=== PATIENT | male | born 1955 | race Caucasian/White ===

== ENCOUNTER 2021-10-15 21:24 | Emergency (ER) | payer OTHER ==
[~2021-10-15] VITALS: Ht 177.8 cm; Wt 59.9 kg
--- NOTE | 2021-10-15 21:34 | NUR ---
pt in for c/o lung pain. states he was exposed to mold two years ago.
--- NOTE | 2021-10-15 21:43 | NUR ---
Dr. Karimi at bedside for MSE.
[2021-10-15 22:34] LABS: HEMATOCRIT 41.4 % (36.7-47.1); MEAN CORPUSCULAR HEMOGLOBIN 30.4 uug (23.8-33.4); MEAN CORPUSCULAR VOLUME 89.1 fL (73.0-96.2); PLATELET COUNT (AUTO) 157 K/uL (152-348)
[2021-10-15 22:39] LABS: CREATININE 1.5 mg/dL (0.6-1.3); POTASSIUM 4.2 mmol/L (3.5-5.1)
[2021-10-15 22:44] LABS: BILIRUBIN,DIRECT 0.1 mg/dL (0.0-0.2); BILIRUBIN,TOTAL 0.4 mg/dL (0.2-1.0); TOTAL PROTEIN, SERUM 6.9 g/dL (6.4-8.2)
[2021-10-15 23:16] LABS: *BILIRUBIN,URIN NEGATIVE (NEGATIVE); *BLOOD, URINE NEGATIVE (NEGATIVE); *CLARITY,URINE CLEAR (CLEAR); *COLOR,URINE YELLOW (YELLOW); *KETONES,URINE NEGATIVE (NEGATIVE); *UROBILINOGEN,URINE 0.2 E.U./dl (NORMAL); LEUKOCYTE ESTERASE ,URINE NEGATIVE (NEGATIVE); NITRITE, URINE NEGATIVE (NEGATIVE); PH,URINE 6.5 (5.0-8.0); UGLUCOSE NEGATIVE (NEGATIVE)
[2021-10-15 23:20] LABS: MAGNESIUM 2.2 mg/dL (1.8-2.4)
[2021-10-16] MEDS ORDERED: LORAZEPAM 0.5 MG TABLET PO ONE (00:30)
[2021-10-16] MEDS ORDERED: LORAZEPAM 1 MG TABLET ONE (00:56)
--- NOTE | 2021-10-16 02:00 | NUR ---
Patient discharged to home in stable condition. Written and verbal after care instructions given. Patient verbalizes understanding of instructions. Stressed follow up or return to ER for worsening s/s.
[2021-10-16 02:56] VITALS: BP 105/68
== END 2021-10-16 02:00 | disposition home or self-care (01) ==
LOC: ER 21:27
DX: R07.1 Chest pain on breathing (principal); I08.0 Rheumatic disorders of both mitral and aortic valves; R51.9 Headache, unspecified; G89.29 Other chronic pain; R10.9 Unspecified abdominal pain; Z86.19 Personal history of other infectious and parasitic diseases; R63.4 Abnormal weight loss
CPT/HCPCS: 36415; 71045; 83735; 85025; A4663

== ENCOUNTER 2021-10-20 17:44 | Emergency (ER) | payer OTHER ==
[~2021-10-20] VITALS: Ht 177.8 cm; Wt 60.3 kg
--- NOTE | 2021-10-20 17:50 | NUR ---
Patient on gurney via ambulance, alert and oriented x4, complaints of body weakness, denies pain, no episodes of nausea/vomiting, vitals stable.
--- NOTE | 2021-10-20 17:51 | NUR ---
MD at bedside, medical screening exam in process.
[2021-10-20] MEDS ORDERED: ABILIFY (17:53)
[2021-10-20] MEDS ORDERED: ATIVAN (17:53)
[2021-10-20] MEDS ORDERED: CYMBALTA (17:53)
[2021-10-20] MEDS ORDERED: MAG HYDROX/AL HYDROX/SIMETH 30 ML LIQUID UDC PO ONE (18:15)
[2021-10-20] MEDS ORDERED: PANTOPRAZOLE SODIUM IV 40 MG in IV DEXTROSE 5% 100 ML IV ONE (18:15)
--- NOTE | 2021-10-20 18:15 | NUR ---
UA sent to lab.
[2021-10-20 18:20] LABS: *BILIRUBIN,URIN NEGATIVE (NEGATIVE); *BLOOD, URINE NEGATIVE (NEGATIVE); *CLARITY,URINE CLEAR (CLEAR); *COLOR,URINE YELLOW (YELLOW); *KETONES,URINE TRACE (NEGATIVE); *UROBILINOGEN,URINE 0.2 E.U./dl (NORMAL); LEUKOCYTE ESTERASE ,URINE NEGATIVE (NEGATIVE); NITRITE, URINE NEGATIVE (NEGATIVE); PH,URINE 5.5 (5.0-8.0); UGLUCOSE NEGATIVE (NEGATIVE)
[2021-10-20] MEDS ORDERED: MAG HYDROX/AL HYDROX/SIMETH 30 ML LIQUID UDC ONE (18:27)
[2021-10-20 18:30] LABS: *AMPHETAMINE, URINE NEGATIVE (NEGATIVE); *CANNABINOID, URINE NEGATIVE (NEGATIVE); *COCCAINE, URINE NEGATIVE (NEGATIVE); *OPIATE, URINE NEGATIVE (NEGATIVE); *PHENCYCLIDINE SCREEN,URINE NEGATIVE (NEGATIVE)
[2021-10-20] MEDS ORDERED: PANTOPRAZOLE SODIUM 40 MG VIAL ONE (18:30)
[2021-10-20 18:33] LABS: MEAN CORPUSCULAR HEMOGLOBIN 30.7 uug (23.8-33.4); MEAN CORPUSCULAR VOLUME 90.6 fL (73.0-96.2); PLATELET COUNT (AUTO) 155 K/uL (152-348)
[2021-10-20 18:38] LABS: CREATININE 1.1 mg/dL (0.6-1.3); POTASSIUM 4.3 mmol/L (3.5-5.1)
[2021-10-20 18:44] LABS: BILIRUBIN,DIRECT 0.1 mg/dL (0.0-0.2); BILIRUBIN,TOTAL 0.5 mg/dL (0.2-1.0); TOTAL PROTEIN, SERUM 6.3 g/dL (6.4-8.2)
--- NOTE | 2021-10-20 18:59 | NUR ---
RECIEVED REPORT FROM SHAWNA BOWER FROM MORNING SHIFT. PT IN BED, A/O X4, DENIES ANY CP/PRESSURE. NO SOB OR LABORED BREATHING, AFEBRILE. VSS.
--- NOTE | 2021-10-20 19:17 | NUR ---
Patient discharged to home in stable condition. Written and verbal after care instructions given. Patient verbalizes understanding of instructions. Stressed follow up or return to ER for worsening s/s. Denies micah N/V/D. No CARDENAS/dizzyness. No SOB or labored breathing. No changes in LOC. Steady gait. Picked up by private [employer].
[2021-10-20 19:27] VITALS: BP 124/69
== END 2021-10-20 19:28 | disposition home or self-care (01) ==
LOC: ER 17:44
DX: K29.70 Gastritis, unspecified, without bleeding (principal)
CPT/HCPCS: 36415; 80048; 80076; 80307; 81003; 83690; 85025; 96365; 99284; C9113; A4663

== ENCOUNTER 2022-10-11 14:44 | Emergency (ER) | payer OTHER ==
[~2022-10-11] VITALS: Ht 175.3 cm; Wt 80.7 kg
[~2022-10-11 14:44] MED LIST: ABILIFY; ATIVAN; CYMBALTA
[2022-10-11 15:14] LABS: HEMATOCRIT 47.3 % (36.7-47.1); MEAN CORPUSCULAR HEMOGLOBIN 28.9 uug (23.8-33.4); MEAN CORPUSCULAR VOLUME 86.1 fL (73.0-96.2); PLATELET COUNT (AUTO) 180 K/uL (152-348)
--- NOTE | 2022-10-11 15:15 | NUR ---
Pt refuses IV/saline lock unless needed before d/c.
[2022-10-11 15:26] LABS: CARBON DIOXIDE 26 mmol/L (21-32); CHLORIDE 102 mmol/L (98-107); CREATININE 1.2 mg/dL (0.6-1.3); GLUCOSE 130 mg/dL (74-106); POTASSIUM 4.4 mmol/L (3.5-5.1); UREA NITROGEN, BLOOD 26 mg/dL (7-18)
[2022-10-11 15:35] LABS: ALANINE AMINOTRANSFERASE 48 U/L (16-63); ALKALINE PHOSPHATASE 85 U/L (50-136); ASPARTATE AMINOTRANSFERASE 27 U/L (15-37); BILIRUBIN,DIRECT 0.1 mg/dL (0.0-0.2); BILIRUBIN,TOTAL 0.7 mg/dL (0.2-1.0); LIPASE 260 U/L (73-393); TOTAL PROTEIN, SERUM 7.9 g/dL (6.4-8.2)
--- NOTE | 2022-10-11 16:00 | NUR ---
Pt seen by Dr. Reyes. EKG performed. Pt states to "hold off on IV until it needs to be used." Safety measures in place. Will continue to monitor.
--- NOTE | 2022-10-11 16:28 | NUR ---
called Dr. Avitia for consult
[2022-10-11] MEDS ORDERED: METO-295 PO ×2 (16:51→16:59)
[2022-10-11] MEDS ORDERED: METO5TAB87 PO (16:59)
--- NOTE | 2022-10-11 17:16 | NUR ---
Gave pt RX and d/c instructions, pt verbalized understanding.
== END 2022-10-11 17:25 | disposition home or self-care (01) ==
LOC: ER 14:44 → UNDOADMIN 15:30 → MEDSURG3 15:30 → ER 17:25
DX: K31.89 Other diseases of stomach and duodenum (principal); G89.29 Other chronic pain; R10.13 Epigastric pain; M79.604 Pain in right leg; Z86.19 Personal history of other infectious and parasitic diseases; Z88.1 Allergy status to other antibiotic agents; Z88.8 Allergy status to other drugs, medicaments and biological substances
CPT/HCPCS: 83690; 84484; 85025; 93005; A4663

== ENCOUNTER 2022-12-24 22:33 | Emergency (ER) | payer OTHER ==
[~2022-12-24] VITALS: Ht 175.3 cm; Wt 76.2 kg
[~2022-12-24 22:33] MED LIST changes: +METO-295 PO; +METO5TAB87 PO
--- NOTE | 2022-12-24 23:07 | NUR ---
Patient arrived at the ER with c/o chronic intermittent CARDENAS radiating to ear, throat and back that is worse tonight.
--- NOTE | 2022-12-24 23:17 | NUR ---
Dr. Lin at bedside for MSE.
[2022-12-24 23:35] LABS: HEMATOCRIT 40.5 % (36.7-47.1); MEAN CORPUSCULAR HEMOGLOBIN 29.1 uug (23.8-33.4); MEAN CORPUSCULAR VOLUME 85.9 fL (73.0-96.2); PLATELET COUNT (AUTO) 176 K/uL (152-348)
[2022-12-24 23:58] LABS: CARBON DIOXIDE 26 mmol/L (21-32); CHLORIDE 105 mmol/L (98-107); CREATININE 1.4 mg/dL (0.6-1.3); GLUCOSE 99 mg/dL (74-106); POTASSIUM 4.3 mmol/L (3.5-5.1); UREA NITROGEN, BLOOD 24 mg/dL (7-18)
[2022-12-25 00:04] LABS: ALANINE AMINOTRANSFERASE 24 U/L (16-63); ALKALINE PHOSPHATASE 72 U/L (50-136); ASPARTATE AMINOTRANSFERASE 16 U/L (15-37); BILIRUBIN,DIRECT 0.1 mg/dL (0.0-0.2); BILIRUBIN,TOTAL 0.5 mg/dL (0.2-1.0); TOTAL PROTEIN, SERUM 7.1 g/dL (6.4-8.2)
[2022-12-25 00:05] LABS: *BILIRUBIN,URIN NEGATIVE (NEGATIVE); *BLOOD, URINE NEGATIVE (NEGATIVE); *CLARITY,URINE CLEAR (CLEAR); *COLOR,URINE YELLOW (YELLOW); *KETONES,URINE 2+ (NEGATIVE); *UROBILINOGEN,URINE 0.2 E.U./dl (NORMAL); LEUKOCYTE ESTERASE ,URINE NEGATIVE (NEGATIVE); NITRITE, URINE NEGATIVE (NEGATIVE); PH,URINE 5.5 (5.0-8.0); UGLUCOSE NEGATIVE (NEGATIVE)
[2022-12-25 00:05] LABS: ACETAMINOPHEN < 2.0 ug/mL (10-30)
[2022-12-25 00:14] LABS: *AMPHETAMINE, URINE NEGATIVE (NEGATIVE); *CANNABINOID, URINE NEGATIVE (NEGATIVE); *COCCAINE, URINE NEGATIVE (NEGATIVE); *PHENCYCLIDINE SCREEN,URINE NEGATIVE (NEGATIVE)
--- NOTE | 2022-12-25 01:58 | NUR ---
Called [facility] intake and spoke to Celina who requested clinicals to be faxed to . Faxed clinicals to Celina.
--- NOTE | 2022-12-25 05:00 | NUR ---
Called [facility] intake and spoke to Celina who states she got clinicals and facsheet and will have nursing supervisor acoustical tile carpenters review chart. Celina will call back if patient is accepted to [facility] or decline.
--- NOTE | 2022-12-25 06:16 | NUR ---
Patient sleeping in bed. In no acute distress. No complain of pain or headache at this time. Still awaiting for [facility] to call for bed availability.
--- NOTE | 2022-12-25 07:27 | NUR ---
Received report from [facility]. Pt is A&Ox4 and cooperative. Safety measures in place. Will continue to monitor.
--- NOTE | 2022-12-25 07:42 | NUR ---
Pt has a "dilemma that he cannot share with anyone, except with his psychiatrist, Dr. Javon Brush." . Pt stated he is possibly "reconsidering not going [place] [facility]" because of his unknown issue and would like to speak to the psychiatrist first. Gave the pt the psychiatrist's number and he left a message as his office is not open yet.
--- NOTE | 2022-12-25 08:24 | NUR ---
Gave report to Santa URRUTIA) at [facility]. Safety measures in place. Will continue to monitor.
--- NOTE | 2022-12-25 08:30 | NUR ---
Transportation set up by [facility] will be coming at approximately 0900.
--- NOTE | 2022-12-25 09:20 | NUR ---
[facility]. Direct Support Staff should be coming at approximately 0940.
--- NOTE | 2022-12-25 09:49 | NUR ---
Pt transferred to [facility]. All belongings are with Pt. Pt transferred to [employer] Nutrition Supervisor's car safely. Vitals stable before transfer.
== END 2022-12-25 09:55 ==
LOC: ER 22:39
DX: F32.A Depression, unspecified (principal); R51.9 Headache, unspecified; Z88.1 Allergy status to other antibiotic agents; Z88.8 Allergy status to other drugs, medicaments and biological substances; Z79.899 Other long term (current) drug therapy; Z20.822 Contact with and (suspected) exposure to COVID-19
CPT/HCPCS: 36415; 85025; A4663; G0480